=== PATIENT | male | born 1940 | race Caucasian/White ===

== ENCOUNTER → 2018-08-27 | Outpatient (CLI) | payer MEDICARE, OTHER ==
[~2018-08-27] MED LIST: ADULT LOW DOSE81 MG PO; AMBEREN; CARVEDILOL6.25 MG PO; EFFIENT10 MG PO; FISH OIL 1,0001 EAC5 PO; KEFLEX500 MG PO; NORCO 5-325 TA1 EACH PO; PREVACID 30MG C30 M1 PO; VITAMINC500 PO; ZOCOR40 MG PO
[2018-08-27 15:18] LABS: HEMATOCRIT 31.5 % (42.0-52.0); HEMOGLOBIN 10.9 gm/dL (14.0-18.0); MCH 31.1 pg (26.0-34.0); MCHC 34.6 g/dL (28.0-37.0); MCV 89.8 fL (80.0-100.0); MPV 7.8 fl. (7.2-11.1); RBC 3.51 mil/uL (4.50-6.00); RDW-CV 13.9 % (10.5-14.5); WBC 8.6 thou/uL (4.0-11.0)
== END ==
LOC: M.ULTRA 14:00
PROVIDERS: Orthopaedic Surgery
DX: M79.89 Other specified soft tissue disorders (principal); Z96.652 Presence of left artificial knee joint